=== PATIENT | female | born 1980 | race Caucasian/White ===

== ENCOUNTER 2018-02-27 17:17 | Emergency (ER) | payer OTHER ==
[~2018-02-27] VITALS: Ht 175.3 cm; Wt 59.0 kg
--- NOTE | 2018-02-27 17:18 | NUR ---
BIB SELF W C/O WORSENING "MIGRAINE KOTHARI FOR MONTHS AND MONTHS", NO RELIEF WITH IMITREX ALSO C/O KNEE PAIN X 2 DAYS AGO WHEN SHE TWISTED IT. TO ER BED 3, HOOKED TO [facility], AWAITING MD DALY
--- NOTE | 2018-02-27 18:00 | NUR ---
DR KASPER AT BEDSIDE
[2018-02-27] MEDS ORDERED: METOCLOPRAMIDE HCL 10 MG/2 ML VIAL IV ONE (18:30)
[2018-02-27] MEDS ORDERED: KETOROLAC TROMETHAMINE INJ 30 MG/ML VIAL IV ONE (18:30)
[2018-02-27] MEDS ORDERED: diphenhydrAMINE HCL 50 MG/ML VIAL IV ONE (18:30)
[2018-02-27] MEDS ORDERED: IV NS 0.9% 1,000 ML BAG IV ONE (18:30)
[2018-02-27] MEDS ORDERED: KETOROLAC TROMETHAMINE INJ 30 MG/ML VIAL ONE (18:44)
[2018-02-27] MEDS ORDERED: diphenhydrAMINE HCL 50 MG/ML VIAL ONE (18:44)
[2018-02-27] MEDS ORDERED: METOCLOPRAMIDE HCL 10 MG/2 ML VIAL ONE (18:44)
--- NOTE | 2018-02-27 19:34 | NUR ---
REPORT GIVEN TO JOEL VERMA FOR PIETRO
--- NOTE | 2018-02-27 19:34 | NUR ---
Patient discharged to home in stable condition. Written and verbal after care instructions given. Patient verbalizes understanding of instruction. IV removed. Catheter intact and site benign. Pressure and 4x4 applied to site. No bleeding noted.
[2018-02-27 19:36] VITALS: BP 130/92
== END 2018-02-27 19:37 | disposition home or self-care (01) ==
LOC: ER 17:26
DX: S83.8X1A Sprain of other specified parts of right knee, initial encounter (principal); G43.909 Migraine, unspecified, not intractable, without status migrainosus; Z60.2 Problems related to living alone; X50.1XXA Overexertion from prolonged static or awkward postures, initial encounter; Y93.89 Activity, other specified; Y92.89 Other specified places as the place of occurrence of the external cause; Y99.8 Other external cause status
CPT/HCPCS: 84703; 96374; 96375; 99283; A4216; A4606; J1200; J1885; J2765; J7030; Z7610

== ENCOUNTER 2018-03-02 14:03 | Emergency (ER) | payer OTHER ==
[~2018-03-02] VITALS: Ht 175.3 cm; Wt 61.2 kg
--- NOTE | 2018-03-02 14:20 | NUR ---
C/O MIGRAINE X 5 MONTHS, D/T GAS LEAKS AT HER APARTMENT,"[place] MONOX[place]" -SOB, +N/V. STATES SHE HAS "STROKED OUT" WITH PREVIOUS EPISODES. PT IS AOX4, AMB, VSS, RR EVEN AND UNLABORED. PAIN LEVEL 4/10. SKIN INTACT. NO ACUTE DISTRESS NOTED. READY FOR EVAL.
--- NOTE | 2018-03-02 14:35 | NUR ---
DR CURTIS AT BEDSIDE
--- NOTE | 2018-03-02 15:05 | NUR ---
CALLED RT TO DRAW ABG
[2018-03-02] MEDS ORDERED: KETOROLAC TROMETHAMINE INJ 30 MG/ML VIAL ONE (15:23)
--- NOTE | 2018-03-02 15:27 | NUR ---
RT AT BEDSIDE FOR ABG
[2018-03-02] MEDS ORDERED: KETOROLAC TROMETHAMINE INJ 60 MG/2 ML VIAL IM ONE (15:30)
--- NOTE | 2018-03-02 15:32 | NUR ---
PT EXPERIENCED "VASOVAGAL" RESPONSE POST ABG AND CASER UP. PLACED ON MONITOR, INSTRUCTED PT TO BEAR DOWN AND TAKE SLOW DEEP BREATHS. STATES SHE FEELS BETTER.
[2018-03-02 16:13] VITALS: BP 140/84
--- NOTE | 2018-03-02 16:13 | NUR ---
Patient discharged to home in stable condition. Written and verbal after care instructions given. Patient verbalizes understanding of instruction.
[2018-03-03 08:56] LABS: ABG BASE EXCESS 1.6 mmol/L; ABG PCO2 40.1 mmHg (35.0-45.0); ABG PH 7.429 (7.350-7.450); ABG PO2 95.5 mmHg (75.0-100.0); AaDO2 6.2 mmHg; COHb 3.2 % (0.5-1.5); MetHb 0.5 % (0.0-1.5); O2Hb 93.4 % (94.0-97.0); SITE, ABG A-Line; VENT MODE, BG ROOM AIR
== END 2018-03-02 16:15 | disposition home or self-care (01) ==
LOC: ER 14:04
DX: T58.8X1A Toxic effect of carbon monoxide from other source, accidental (unintentional), initial encounter (principal); R51 Headache; J45.909 Unspecified asthma, uncomplicated; F41.9 Anxiety disorder, unspecified; F43.10 Post-traumatic stress disorder, unspecified; Z60.2 Problems related to living alone; Y92.89 Other specified places as the place of occurrence of the external cause
CPT/HCPCS: 36600; 82803-TC; J1885